=== PATIENT | male | born 1995 | race Caucasian/White ===

== ENCOUNTER 2021-06-13 11:52 | Emergency (ER) | payer MEDICAID ==
[~2021-06-13] VITALS: Ht 180.3 cm; Wt 83.9 kg
[2021-06-13 11:54] VITALS: BP 119/72
--- NOTE | 2021-06-13 12:05 | NUR ---
Pt ambulated to bed 2.
--- NOTE | 2021-06-13 12:14 | NUR ---
25/M presents to ED with c/o migraine. Patient states he has been having 6/10 dull intermittent migraine for the last two weeks. Reports taking Advil at home with no relief, stating he is having episodes of feeling "light headed" states bending over worsens the pain. Patient states he has been experiencing nausea since this morning, having one episode of vomiting upon arrival to ED. Patient denies chest pain, shortness of breath, blurred vision or eye sensitivity to light. Patient alert and oriented x4, answering questions appropriately in full clear sentences.
[2021-06-13] MEDS ORDERED: ONDANSETRON 4 MG ODT PO ONE (12:45)
[2021-06-13] MEDS ORDERED: KETOROLAC 60 MG/2 ML VIAL IM ONE (12:45)
[2021-06-13] MEDS ORDERED: cefTRIAXone 1,000 MG in DEXT 5% MINI-BAG PLUS 50 ML IV ONE (13:50)
[2021-06-13] MEDS ORDERED: cefTRIAXone 1,000 MG VIAL ONE (14:03)
[2021-06-13 14:26] LABS: BASOPHILS # (AUTO) 0.1 K/uL (0.00-0.22); BASOPHILS % (AUTO) 0.5 % (0.0-2.0); EOSINOPHILS % (AUTO) 0.2 % (0.0-4.0); HEMATOCRIT 39.1 % (36-52); HEMOGLOBIN 13.1 g/dL (12.0-18.0); LYMPHOCYTES # (AUTO) 1.6 K/uL (2.0-11.5); LYMPHOCYTES % (AUTO) 13.6 % (20.5-51.1); MEAN CORPUSCULAR HEMOGLOBIN 28 pg (27-31); MEAN CORPUSCULAR HGB CONC 33 g/dL (33-37); MEAN CORPUSCULAR VOLUME 84.2 fL (80-94); MONOCYTES # (AUTO) 0.8 K/uL (0.8-1.0); MONOCYTES % (AUTO) 7.2 % (1.7-9.3); NEUTROPHILS # (AUTO) 9.2 K/uL (1.8-7.7); NEUTROPHILS % (AUTO) 78.5 % (42.2-75.2); PLATELET COUNT (AUTO) 243 K/uL (140-450); RED BLOOD CELL COUNT(AUTO) 4.64 MIL/uL (4.20-6.10); RED CELL DISTRIBUTION WIDTH 13.2 % (11.6-13.7); WHITE BLOOD COUNT (AUTO) 11.7 K/uL (4.8-10.8)
[2021-06-13 15:00] LABS: ALBUMIN 4.4 g/dL (3.4-5.0); ANION GAP 13.4 (8-16); CARBON DIOXIDE 23.2 mmol/L (21-32); POTASSIUM 3.6 mmol/L (3.5-5.1); TOTAL BILIRUBIN 0.5 mg/dL (0.0-1.0)
--- NOTE | 2021-06-13 15:12 | NUR ---
Patient to be transferred to [facility] ED. Is being transferred due to higher level of care. Receiving facility has accepting physician and available space. ER physician has signed transfer form. Patient or responsible republican has agreed to transfer and signed form. Patient belongings inventoried and will be sent with patient. Copy of nursing notes, lab reports, Physicians Orders and X-rays to be sent with patient. Report called to Susan at receiving facility. [facility] ambulance service has been called for transfer. ETA is between [phone].
[2021-06-13 15:20] VITALS: BP 110/73
[2021-06-14 09:52] LABS: RAPID PLASMA REAGIN NON-REACTIVE (Non Reactiv)
== END 2021-06-13 15:12 | disposition short-term general hospital (02) ==
LOC: MED 11:52
DX: G93.89 Other specified disorders of brain (principal); F12.10 Cannabis abuse, uncomplicated; I51.9 Heart disease, unspecified; Z20.822 Contact with and (suspected) exposure to COVID-19
CPT/HCPCS: 36415; 70450; 71045; 80053; 83605; 85025; 86592; 86703; 87040; 87426; 96365; 96372; 99285; J0696; J1885; Q0162; 96375

== ENCOUNTER 2021-06-28 12:37 | Inpatient (IN) | payer MEDICAID ==
[~2021-06-28] VITALS: Ht 175.3 cm; Wt 83.9 kg
[2021-06-28 13:07] VITALS: BP 128/78
--- NOTE | 2021-06-28 14:25 | NUR ---
Dr. Stuart is evaluating patient in triage room.
[2021-06-28] MEDS ORDERED: DOPPLER MC ONE (16:04)
[2021-06-28 16:08] LABS: BASOPHILS # (AUTO) 0.1 K/uL (0.00-0.22); BASOPHILS % (AUTO) 0.9 % (0.0-2.0); EOSINOPHILS # (AUTO) 0.1 K/uL (0-0.4); EOSINOPHILS % (AUTO) 1.9 % (0.0-4.0); HEMATOCRIT 41.8 % (36-52); LYMPHOCYTES # (AUTO) 1.7 K/uL (2.0-11.5); LYMPHOCYTES % (AUTO) 25.1 % (20.5-51.1); MEAN CORPUSCULAR HEMOGLOBIN 28 pg (27-31); MEAN CORPUSCULAR HGB CONC 34 g/dL (33-37); MEAN CORPUSCULAR VOLUME 83.9 fL (80-94); MONOCYTES # (AUTO) 0.9 K/uL (0.8-1.0); MONOCYTES % (AUTO) 13.4 % (1.7-9.3); NEUTROPHILS % (AUTO) 58.7 % (42.2-75.2); PLATELET COUNT (AUTO) 370 K/uL (140-450); RED BLOOD CELL COUNT(AUTO) 4.98 MIL/uL (4.20-6.10); RED CELL DISTRIBUTION WIDTH 13.4 % (11.6-13.7); WHITE BLOOD COUNT (AUTO) 6.7 K/uL (4.8-10.8)
[2021-06-28 16:40] LABS: ALBUMIN 3.9 g/dL (3.4-5.0); ANION GAP 13.4 (8-16); CARBON DIOXIDE 27.5 mmol/L (21-32); POTASSIUM 3.9 mmol/L (3.5-5.1); TOTAL BILIRUBIN 0.3 mg/dL (0.0-1.0); VANCOMYCIN,RANDOM 0.7 ug/ml
--- NOTE | 2021-06-28 18:51 | NUR ---
pt ambulated to bed 08
--- NOTE | 2021-06-28 19:19 | NUR ---
PATIENT HAS A PICC LINE TO L ARM. PICC LINE IS INTACT. SKIN WARM AND DRY.
--- NOTE | 2021-06-28 19:19 | NUR ---
26 YP/M BIB SELF ACCOMPANIED BY D/T ABNORMAL LABS OF AST99, ALT 436, PHOS 485 AND ADVISED BY HOME HEALTH NURSE TO BE EVALUATED IN ER. PATIENT ALSO REPORTS DISCOMFORT TO LOWER BACK WHILE URINATING "PULSATING' SENSATION X1 DAY, AND REPORTS PUMPS ON TONGUE FOR A FEW DAYS. DENIES FEVERS, N/V/D OR ANY PAIN. CONNECTED PATIENT TO MONITOR W VSS.PATIENT SITTING IN BED LOCKDE IN LOWEST POSITION X1 SIDERAIL UP, BREATHING EVEN AND UNLABORED. HOB SLIGHTLY ELEVATED. NAD NOTED, WILL CONTINUE TO MONITOR. AT BEDSIDE. 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
[2021-06-28 20:00] LABS: APPEARANCE,URINE CLEAR (CLEAR); BILIRUBIN,URINE NEGATIVE (NEGATIVE); BLOOD, URINE TRACE-I (NEGATIVE); COLOR,URINE YELLOW (YELLOW); LEUKOCYTE ESTERASE ,URINE NEGATIVE (NEGATIVE); NITRITE, URINE NEGATIVE (NEGATIVE); PH,URINE 5.5 (5.0-9.0); UGLUCOSE NEGATIVE (NEGATIVE)
[2021-06-28] MEDS ORDERED: VANCOMYCIN 1,000 MG in DEXTROSE 5% 250 ML IV ONE (20:50)
--- NOTE | 2021-06-28 21:03 | NUR ---
PATIENT LAYING IN BED LOCKED LOWEST, X1 SIDERAIL UP. PATIENT CO OF LOWER BACK PAIN 07/02. VSS. AT BEDSIDE.
[2021-06-28 21:10] LABS: RBC,URINE 0-5 /HPF (0-5); WBC,URINE 0-5 /HPF (0-5)
[2021-06-28] MEDS ORDERED: VANCOMYCIN 1,000 MG VIAL ONE (21:29)
[2021-06-28] MEDS ORDERED: cefTRIAXone 1,000 MG VIAL ONE (21:29)
[2021-06-28] MEDS: HYDROcodone/APAP 5/325 MG 1 TAB TAB PO PRN (22:03)
[2021-06-28] MEDS: ONDANSETRON 4 MG/2 ML VIAL IVP PRN (22:04)
--- NOTE | 2021-06-28 23:31 | NUR ---
PATIENT LAYING IN BED LOCKED IN LOWEST POSITION. X1 SIDERAIL UP. PATIENT ON THEIR PHONE AND CONVERSATING WITH . VSS. WILL CONTINUE TO MONITOR.
[2021-06-29] MEDS: NACL 0.9% 1,000 ML IV SCH ×3 (01:30→23:05)
--- NOTE | 2021-06-29 01:37 | NUR ---
PATIENT LAYING IN BED LOCKED IN LOWEST POSITION. X1 SIDERAIL UP. PATIENT CONVERSATING WITH AT BEDSIDE. RUNNING 0.9 NS AT 75ML/HR. VSS. WILL CONTINUE TO MONITOR.
--- NOTE | 2021-06-29 02:00 | NUR ---
RECIEVED REPORT OVER THE PHONE FROM ER NURSE, PT IN STABLE CONDITION.
--- NOTE | 2021-06-29 03:00 | NUR ---
PT BROUGHT UP BY NOLAN, HE IS AOX4 HAS SINGLE LUMEN PICC LINE INTACT AND ASYMPTOMATIC. OTHER CRISTOBAL SKIN INTACT. HE DENIES ANY PAIN . V/S FOLLOWS: T 98.6 P 85 R 18 B/P 107/64 02 99% ON ROOM AIR. ALL ORDERED PRECAUTIONS PLACE.
--- NOTE | 2021-06-29 03:40 | NUR ---
PATIENT LAYING IN BED W EYES CLOSED. BED LOCKED IN LOWEST POSITION, X1 SIDERAIL UP. BREATHING EVEN AND UNLABORED. NAD NOTED. WILL CONTINUE TO MONITOR. VSS. AT BEDSIDE. 0.9 NS RUNNING AT 75 ML/HR.
--- NOTE | 2021-06-29 03:47 | NUR ---
REPORT CALLED TO SHAYNA WEBB FOR TRANSFER OF PATIENT CARE AT THIS TIME.
[2021-06-29 04:00] VITALS: BP 107/64
--- NOTE | 2021-06-29 04:03 | NUR ---
Patient will be admitted to care of . Admited to MED/SURG. Will go to room 125A. Belongings list completed. Report to SHAYNA WEBB.
--- NOTE | 2021-06-29 07:30 | NUR ---
NURSE REPORT Report obtained from night nurse Jodi and this nurse assumed care of patient. Received patient asleep at beginning of shift. No sxs of pain or distress. iv ns at 75 ml/hr into PICC in ROSA.
[2021-06-29 08:00] VITALS: BP 118/64
--- NOTE | 2021-06-29 08:30 | NUR ---
NURSE CARE Patient refused to eat much of "hospsital food". No c/o pain or discomfort. Asked when the MD would be coming.
[2021-06-29] MEDS: ENOXAPARIN 40 MG/0.4 ML SYR SUBQ SCH (10:55)
[2021-06-29 12:12] LABS: BASOPHILS # (AUTO) 0.1 K/uL (0.00-0.22); BASOPHILS % (AUTO) 1.1 % (0.0-2.0); EOSINOPHILS # (AUTO) 0.2 K/uL (0-0.4); HEMATOCRIT 36.1 % (36-52); HEMOGLOBIN 12.1 g/dL (12.0-18.0); LYMPHOCYTES # (AUTO) 1.2 K/uL (2.0-11.5); LYMPHOCYTES % (AUTO) 17.7 % (20.5-51.1); MEAN CORPUSCULAR HEMOGLOBIN 28 pg (27-31); MEAN CORPUSCULAR HGB CONC 34 g/dL (33-37); MEAN CORPUSCULAR VOLUME 82.2 fL (80-94); MONOCYTES # (AUTO) 0.8 K/uL (0.8-1.0); MONOCYTES % (AUTO) 11.5 % (1.7-9.3); NEUTROPHILS # (AUTO) 4.6 K/uL (1.8-7.7); NEUTROPHILS % (AUTO) 66.7 % (42.2-75.2); PLATELET COUNT (AUTO) 247 K/uL (140-450); RED BLOOD CELL COUNT(AUTO) 4.39 MIL/uL (4.20-6.10); RED CELL DISTRIBUTION WIDTH 13.2 % (11.6-13.7)
[2021-06-29 12:24] LABS: ALBUMIN 3.3 g/dL (3.4-5.0); ANION GAP 11.9 (8-16); CARBON DIOXIDE 27.1 mmol/L (21-32); CREATININE 0.9 mg/dL (0.6-1.3); TOTAL BILIRUBIN 0.4 mg/dL (0.0-1.0)
[2021-06-29 16:00] VITALS: BP 119/62
--- NOTE | 2021-06-29 16:00 | NUR ---
NURSE NOTES DR INFANTE IN AND STATED PATIENT CANNOT GO HOME YET DUE TO ADNORMAL LABS.
--- NOTE | 2021-06-29 19:30 | NUR ---
NURSE REPORT REPORT GIVEN TO JULIA NURSE FRANKLYN TO ASSUME CARE OF PATIENT. SBAR GIVEN. ALL QUESTIONS ANSWERED.
[2021-06-29 21:20] VITALS: BP 140/80
[2021-06-29] MEDS: HYDROcodone/APAP 5/325 MG 1 TAB TAB PO PRN (22:38)
--- NOTE | 2021-06-30 00:24 | NUR ---
pt verbalizes relief of pain he is sleeping well
[2021-06-30 00:45] VITALS: BP 130/70
[2021-06-30 05:19] VITALS: BP 138/74
--- NOTE | 2021-06-30 06:33 | NUR ---
PT SLEPT WELL AFTER CONTROLLING IN PAIN ,VSS
--- NOTE | 2021-06-30 07:25 | NUR ---
NURSE REPORT WAS NOT GIVEN TO THIS NURSE IN PERSON, AND SHE DIDN'T KNOW IF THE REPORT WAS IN THE PATIENT BLUE FOLDER. ONLY UPDATE. SO NO DATE, TIME OR NURSE NAME.
[2021-06-30 08:00] VITALS: BP 118/64
--- NOTE | 2021-06-30 09:04 | NUR ---
PATIENT HAS BEEN SCREENED AND CATEGORIZED LOW NUTRITION RISK. PATIENT WILL BE SEEN WITHIN 7 DAYS OF ADMISSION. 07/05/[address]
[2021-06-30] MEDS: ENOXAPARIN 40 MG/0.4 ML SYR SUBQ SCH (09:28)
[2021-06-30 16:00] VITALS: BP 119/62
--- NOTE | 2021-06-30 17:00 | NUR ---
NURSE NOTES PATIENT TRANSFERRED TO ROOM 111A, SINCE THE PATIENT WILL BE IN ISOLATION. WAITING FOR THE RESULTS OF BLOOD CULTURES DONE AT [facility]. PATIENT STATED THAT THE DOCTOR WILL DC'D THE CEFTRIAXONE SINCE MAKING HIS ENZYME INCREASE
[2021-06-30] MEDS: NACL 0.9% 1,000 ML IV SCH (19:11)
--- NOTE | 2021-06-30 19:20 | NUR ---
NURSE REPORT Report given to night nurse Erika to assume care of patient. VSS. Afeb. Waiting for the blood cultuire result from [facility] and this nurse had send another relase of medical records that the patient requested and signed for. Had difficult time calling medical records today, since they said they are closed and then one person is in medical record stated needs another relase of medical information so she would send it, but then at 510 pm, this nruse tries to call medicla rec ord and not answer. Patient refused to take Rocephin since stated that the med makes his enzyme increases.
[2021-06-30 20:00] VITALS: BP 133/70
[2021-06-30 20:57] VITALS: BP 130/74
[2021-06-30] MEDS: HYDROcodone/APAP 5/325 MG 1 TAB TAB PO PRN (21:13)
[2021-07-01] VITALS: BP 128/69
[2021-07-01] MEDS: NACL 0.9% 1,000 ML IV SCH (01:45)
--- NOTE | 2021-07-01 02:25 | NUR ---
PT IS SLEEPING WELL ,PAIN WELL CONTROLLED VSS
[2021-07-01 05:37] VITALS: BP 129/69
--- NOTE | 2021-07-01 06:26 | NUR ---
PT SLEPT WELL PAIN WAS WELL CONTROLLED , VSS HE DENIES PAIN NOW .
[2021-07-01 07:26] LABS: BASOPHILS % (AUTO) 0.8 % (0.0-2.0); EOSINOPHILS # (AUTO) 0.2 K/uL (0-0.4); EOSINOPHILS % (AUTO) 2.6 % (0.0-4.0); HEMATOCRIT 39.4 % (36-52); HEMOGLOBIN 13.1 g/dL (12.0-18.0); LYMPHOCYTES # (AUTO) 1.8 K/uL (2.0-11.5); LYMPHOCYTES % (AUTO) 27.9 % (20.5-51.1); MEAN CORPUSCULAR HEMOGLOBIN 28 pg (27-31); MEAN CORPUSCULAR HGB CONC 33 g/dL (33-37); MEAN CORPUSCULAR VOLUME 83.8 fL (80-94); MONOCYTES # (AUTO) 0.5 K/uL (0.8-1.0); MONOCYTES % (AUTO) 8.2 % (1.7-9.3); NEUTROPHILS # (AUTO) 3.9 K/uL (1.8-7.7); NEUTROPHILS % (AUTO) 60.5 % (42.2-75.2); PLATELET COUNT (AUTO) 282 K/uL (140-450); RED BLOOD CELL COUNT(AUTO) 4.71 MIL/uL (4.20-6.10); RED CELL DISTRIBUTION WIDTH 13.2 % (11.6-13.7); WHITE BLOOD COUNT (AUTO) 6.4 K/uL (4.8-10.8)
[2021-07-01 08:00] VITALS: BP 115/67
--- NOTE | 2021-07-01 08:30 | NUR ---
NURSE REPORT REPORT OBTAINED FROM JULIA ESTES AT 0750 AND THIS NURSE ASSUME CARE OF PATIENT.VSS. AFEB. NO C/O PAIN. IV NS AT 75ML/HR.
[2021-07-01 08:34] LABS: ALBUMIN 3.4 g/dL (3.4-5.0); ANION GAP 13.4 (8-16); CARBON DIOXIDE 25.4 mmol/L (21-32); CREATININE 0.9 mg/dL (0.6-1.3); POTASSIUM 3.8 mmol/L (3.5-5.1); TOTAL BILIRUBIN 0.3 mg/dL (0.0-1.0)
[2021-07-01] MEDS: ENOXAPARIN 40 MG/0.4 ML SYR SUBQ SCH (09:42)
--- NOTE | 2021-07-01 13:45 | NUR ---
NURSE NOTES [facility] WAS NOTIFIED TO ASK WHY THE BLOOD CULTURE WASN'T DONE. NO C/O PAIN OR DISCOMFORT.
[2021-07-01 16:00] VITALS: BP 100/54
--- NOTE | 2021-07-01 18:00 | NUR ---
NURSE NOTES DR INFANTE WANTED THE RESULTS OF THE BLOOD CULTURE YESTERDAY, AND DR CHAUHAN IS MEDICAL SECRETARY TEACHER. THEN DR CHAUAHN WAS SENT A TEXT ABOUT THE BLOOD CULTURES, AND HE SAYS NATALIA NEEDS TO BE CALLED. THEN THE COPY OFTHE BLOOD CULTURE COULD NOT BE FOUND. THIS NURSE CALLED [facility] TO ASK TO RESEND THE BLOOD CULTURES.BY THEN MEDICAL RECORDS ARE CLOSED. ER PERSONNEL SENT COMPLETE LABS. LABS PLACED IN FRONT OF CHART.
[2021-07-01 20:00] VITALS: BP 110/53
--- NOTE | 2021-07-01 20:00 | NUR ---
PT IS IN BED AND TAKING REST.NO DISTRESS NOTED AT THIS TIME.IVF INFUSING WELL VIA PIC LINE IN RT. ARM.CALL LIGHT IN REACH.NO C/O PAIN NOW.WILL CONT.MONITORING.
[2021-07-01] MEDS ORDERED: VANCOMYCIN PER PHARMACY MC PRN (20:45)
--- NOTE | 2021-07-02 | NUR ---
SLEEPING.IVF IS IN PROGRESS.NO S/S OF ANY DISTRESS NOTED.
[2021-07-02] MEDS ORDERED: VANCOMYCIN 1,000 MG VIAL ONE (02:08)
[2021-07-02 04:00] VITALS: BP 115/65
[2021-07-02] MEDS: VANCOMYCIN 1GM/DEXT 5% PREMIX 200 ML IV SCH ×2 (04:48→05:00)
[2021-07-02] MEDS: NACL 0.9% 1,000 ML IV SCH ×3 (04:48→18:38)
--- NOTE | 2021-07-02 06:13 | NUR ---
HAD NEW ORDER FOR VANCOMYCIN,1ST DOSE STARTED.PT TOLERATED WELL.CALL LIGHT IN REACH.
--- NOTE | 2021-07-02 07:32 | NUR ---
REPORT GIVEN TO AM RN IN STABLE CONDITION.
[2021-07-02 07:51] LABS: BASOPHILS % (AUTO) 0.3 % (0.0-2.0); EOSINOPHILS # (AUTO) 0.1 K/uL (0-0.4); EOSINOPHILS % (AUTO) 0.9 % (0.0-4.0); HEMATOCRIT 37.6 % (36-52); HEMOGLOBIN 12.6 g/dL (12.0-18.0); LYMPHOCYTES # (AUTO) 1.4 K/uL (2.0-11.5); LYMPHOCYTES % (AUTO) 20.3 % (20.5-51.1); MEAN CORPUSCULAR HEMOGLOBIN 28 pg (27-31); MEAN CORPUSCULAR HGB CONC 33 g/dL (33-37); MEAN CORPUSCULAR VOLUME 82.6 fL (80-94); MONOCYTES # (AUTO) 0.3 K/uL (0.8-1.0); NEUTROPHILS % (AUTO) 74.5 % (42.2-75.2); PLATELET COUNT (AUTO) 248 K/uL (140-450); RED BLOOD CELL COUNT(AUTO) 4.55 MIL/uL (4.20-6.10); WHITE BLOOD COUNT (AUTO) 6.7 K/uL (4.8-10.8)
[2021-07-02 08:00] VITALS: BP 106/63
--- NOTE | 2021-07-02 08:00 | NUR ---
NURSE REPORT Report obtained from night nurse Jose and this nurse assume care of patient. Received patient asleep at beginning of shift. No sxs of pain or discomfort. VS taken. Temp 100.3 F. .
[2021-07-02 08:58] LABS: ALBUMIN 3.3 g/dL (3.4-5.0); CARBON DIOXIDE 24.8 mmol/L (21-32); POTASSIUM 3.8 mmol/L (3.5-5.1); TOTAL BILIRUBIN 0.4 mg/dL (0.0-1.0)
[2021-07-02] MEDS: ENOXAPARIN 40 MG/0.4 ML SYR SUBQ SCH (09:50)
--- NOTE | 2021-07-02 10:30 | NUR ---
NURSE CARE MD notified of patient having an elevated temp of 100.3 F. He was c/o being cold this am, and given another blanket. On IVPB atb Vancomycin q8h. IV NS infusing at 75 ml/hr into PICC line in R arm. No c/o pain at this time.
--- NOTE | 2021-07-02 12:09 | NUR ---
DC PLANNING: ORDERS RECEIVED TO TRANSFER TO [facility] FOR HIGHER LEVEL OF CARE. GERALDO SPOKE WITH CARLIN, COORDINATOR AT [facility] ([phone]), WHO STATES SHE WILL EMAIL THE CONTENT CHECKER AND ASK THEM TO CALL ME REGARDING THIS. CALL REFERENCE # [id number]. GERALDO WILL FOLLOW FOR NEEDS. Addendum: 07/03/21 at 1441 by Jocelyn Sellers CM DC PLANNING: GERALDO SPOKE WITH PATIENT AT BEDSIDE. PATIENT LIVES IN A GROUND FLOOR APARTMENT WITH HIS SIGNIFICANT OTHER AND INFANT SON. PATIENT IS INDEPENDENT IN ALL ACTIVITIES AND HAD [facility] FOR ABX INFUSION AFTER DC FROM [facility]. ORDERS RECEIVED FOR CONTINUATION OF IV VANCO UPON DISCHARGE. INFORMATION FAXED TO [facility], PHONE [phone], FAX [phone] TO RESUME VANCOMYCIN. INFORMATION FAXED TO [facility], PHONE [phone], FAX [phone]. GERALDO WILL FOLLOW FOR NEEDS.
[2021-07-02] MEDS: VANCOMYCIN HCL 1.25 GM in DEXTROSE 5% 250 ML IV SCH ×2 (13:00→20:59)
--- NOTE | 2021-07-02 13:10 | NUR ---
DC PLANNING: CM RECEIVED A CALL FROM VIVI AT [facility] ([phone]), SHE STATES THAT THEY HAVE BEEN PROVIDING INFUSION SERVICES OF VANCOMYCIN TO PATIENT. CM WILL FOLLOW. Addendum: 07/02/21 at 1442 by Jocelyn Sellers CM DC PLANNING: CLINICALS FAXED TO [facility], PHONE [phone], FAX # [phone]. SPOKE WITH [facility] HAS NO IP BEDS AND IS ON LEVEL 3 DIVERSION. CM WILL NEED TO FOLLOW UP DAILY FOR BED AVAILABILITY, AND WILL CONTINUE TO FOLLOW FOR NEEDS. Addendum: 07/03/21 at 0904 by Jocelyn Sellers CM DC PLANNING: GERALDO SPOKE WITH LAMONT AT [facility], FACILITY STILL ON LEVEL 3 DECEL, ACCEPTING ONLY TRAUMA PATIENTS, BURN VICTIMS AND STROKE PATIENTS. DR. CHAUHAN NOTIFIED, CM WILL FOLLOW FOR NEEDS.
--- NOTE | 2021-07-02 17:00 | NUR ---
NURSE NOTES PATIENT WAS SUPPOSED TO BE TRANSFERRED TO [facility], BUT THERE ARE NO PATIENT BEDS. IV NS INFUSING AT 75 ML/HR THRU PICC IN R UPPER ARM. PATIENT AWARE THAT NO BEDS AT [facility]..
--- NOTE | 2021-07-02 19:15 | NUR ---
NURSE REPORT Report given to night nurse Jose to assume care of patient. VSS. Afeb. T Max 100.3 and last temp 98 F. no c/o pain. at bedside.
[2021-07-02 20:00] VITALS: BP 92/60
[2021-07-02] MEDS: HYDROcodone/APAP 5/325 MG 1 TAB TAB PO PRN (20:13)
--- NOTE | 2021-07-02 20:15 | NUR ---
AWAKE,A & O.RESP.UNLABORED IN RA. IVF INFUSING WELL.CALL LIGHT WITHIN REACH.HAD C/O SHORT PO MED GIVEN WILL REASSESS PER PROTOCOL. FAMILY AT BEDSIDE. WILL CONT.MONITORING.
[2021-07-02] MEDS: ONDANSETRON 4 MG/2 ML VIAL IVP PRN (21:18)
--- NOTE | 2021-07-03 01:30 | NUR ---
NO C/O PAIN OR DISCOMFORT NOW.IVF IS IN PROGRESS. FREQUENT ROUND DONE.
[2021-07-03 04:00] VITALS: BP 93/67
[2021-07-03 04:22] LABS: BASOPHILS % (AUTO) 0.5 % (0.0-2.0); EOSINOPHILS # (AUTO) 0.3 K/uL (0-0.4); EOSINOPHILS % (AUTO) 5.1 % (0.0-4.0); HEMATOCRIT 36.3 % (36-52); HEMOGLOBIN 12.3 g/dL (12.0-18.0); LYMPHOCYTES # (AUTO) 0.8 K/uL (2.0-11.5); LYMPHOCYTES % (AUTO) 13.3 % (20.5-51.1); MEAN CORPUSCULAR HEMOGLOBIN 28 pg (27-31); MEAN CORPUSCULAR HGB CONC 34 g/dL (33-37); MEAN CORPUSCULAR VOLUME 81.8 fL (80-94); MONOCYTES # (AUTO) 0.5 K/uL (0.8-1.0); MONOCYTES % (AUTO) 9.5 % (1.7-9.3); NEUTROPHILS % (AUTO) 71.6 % (42.2-75.2); PLATELET COUNT (AUTO) 228 K/uL (140-450); RED BLOOD CELL COUNT(AUTO) 4.45 MIL/uL (4.20-6.10); RED CELL DISTRIBUTION WIDTH 13.3 % (11.6-13.7); WHITE BLOOD COUNT (AUTO) 5.6 K/uL (4.8-10.8)
[2021-07-03 04:31] LABS: ALBUMIN 3.2 g/dL (3.4-5.0); ANION GAP 14.5 (8-16); CARBON DIOXIDE 26.2 mmol/L (21-32); POTASSIUM 3.7 mmol/L (3.5-5.1); TOTAL BILIRUBIN 0.5 mg/dL (0.0-1.0)
--- NOTE | 2021-07-03 04:58 | NUR ---
VANCO TROUGH =22.3.CALLED [facility] PER THEM WILL HOLD VANCO AT 0500 AM AND PHARMACY WILL ADJUST THE DOSE.IN AM.
--- NOTE | 2021-07-03 06:42 | NUR ---
HE IS WAITING FOR BED IN .NO DISTRESS NOTED AT PRESENT TIME.
[2021-07-03] MEDS: NACL 0.9% 1,000 ML IV SCH (07:05)
--- NOTE | 2021-07-03 07:27 | NUR ---
ENORSED TO AM RN IN STABLE CONDITION.
--- NOTE | 2021-07-03 07:30 | NUR ---
RECEIVED REPORT FROM NIGHT NURSE, PT IS AAOX4 ON ROOM AIR, AMBULATORY, SKIN INTACT IV INTACT ON RIGHT UA PICC LINE RUNNING NS AT 75 MLS/HR, FOR SOCIAL SERVICE REQUEST TRANSFER TO [facility] WHEN BED IS AVAILABLE, FOR DR FISHER CONSULT. SAFETY MEASURES IN PLACE AND CALL LIGHT WITHIN REACH. WILL CONTINUE TO MONITOR.
[2021-07-03 08:00] VITALS: BP 97/59
[2021-07-03] MEDS: ENOXAPARIN 40 MG/0.4 ML SYR SUBQ SCH (10:02)
--- NOTE | 2021-07-03 10:05 | NUR ---
ADMINISTERED SCHEDULED MEDICATION ENOXAPARIN SUBQ. PT IS RESTING AND NO DISTRESS WILL CONTINUE TO MONITOR
--- NOTE | 2021-07-03 12:00 | NUR ---
MADE TOUNDS PATIENT IS RESTING NO DISTRESS NOTED AND DENIES ANY PAIN OR SOB.
--- NOTE | 2021-07-03 14:00 | NUR ---
MADE ROUNDS PATIENT IS RESTING ON HIS PHONE, DENIES CHEST PAIN. WILL CONTINUE TO MONITOR.
[2021-07-03 16:00] VITALS: BP 114/74
--- NOTE | 2021-07-03 16:23 | NUR ---
HEEL PROTECTORS APPLIED ON BILATERAL HEELS AND ELEVATED PATIENT EXTREMITIES.
--- NOTE | 2021-07-03 19:05 | NUR ---
PATIENT WENT AMA, LEAVING THE HOSPITAL WITHOUT BEING SEEN BY THE DOCTOR. EXPLAINED THE RISK AND THAT WE ARE NOT ACCOUNTABLE FOR ANY INCIDENT. DR GISSEL OBANDO.
[2021-07-03] MEDS ORDERED: VANCOMYCIN 1,000 MG in DEXTROSE 5% 250 ML IV SCH (21:00)
== END 2021-07-03 19:35 | disposition left against medical advice (07) | DRG 200 ==
LOC: MED 12:37 → MMU 20:27 → MTU 06-30 18:02 → OBSVTOIN 07-01 12:34
PROVIDERS: ADMIT Hospitalist; ATTEND Hospitalist
DX: I38 Endocarditis, valve unspecified (principal); R74.01 Elevation of levels of liver transaminase levels; Z95.2 Presence of prosthetic heart valve; Z20.822 Contact with and (suspected) exposure to COVID-19; Z53.29 Procedure and treatment not carried out because of patient's decision for other reasons; T50.905A Adverse effect of unspecified drugs, medicaments and biological substances, initial encounter; Y92.89 Other specified places as the place of occurrence of the external cause
CPT/HCPCS: 96365; 96367; 96375; 99285; G0378; 36415; 76700; 80053; 80202; 81001; 83690; 85025; 87040; 87081; 87086; J0696; J1650; J2405; J3370; J7060